=== PATIENT | female | born 1950 | race Caucasian/White ===

== ENCOUNTER → 2023-02-03 | Outpatient (CLI) | payer MEDICARE ==
[2023-02-03 08:59] LABS: Source, Urine Clean Catch
[2023-02-03 12:37] LABS: Appearance, Urine Clear (Clear); Bilirubin, Urine Neg (Neg); Blood, Urine 2+ (Neg); Color, Urine Yellow (P-Yellow); Glucose Qualitative, Urine Neg (Neg); Ketones, Urine Neg (Neg); Leukocyte Esterase, Urine Neg (Neg); Nitrite, Urine Neg (Neg); Protein, Urine 1+ (Neg); Specific Gravity, Urine 1.015 (1.003-1.022); Urobilinogen, Urine NORM (Normal)
[2023-02-03 12:56] LABS: Bacteria Not Seen /hpf; Mucus Light (0-Heavy); Squamous Epithelial Cells Few /hpf (Few); White Blood Cells, Urine Not Seen /hpf (0-5)
== END | disposition home or self-care (01) ==
LOC: LAB 08:58 → LAB SHORT 08:58
PROVIDERS: Nurse Practitioner Family
DX: R30.0 Dysuria (principal)
CPT/HCPCS: 81001